=== PATIENT | male | born 1950 | race African-American/Black ===

== ENCOUNTER 2021-04-29 22:08 | Emergency (ER) | payer MEDICARE ==
[~2021-04-29] VITALS: Ht 175.3 cm; Wt 61.7 kg
--- NOTE | 2021-04-29 22:20 | NUR ---
Placed in room 04 . Placed on cardiac rn, blood pressure machine and pulse oximeter. To gown for exam. Side rails up.
[2021-04-29 22:22] VITALS: BP_SYST 160
--- NOTE | 2021-04-29 22:30 | NUR ---
PT BIB BLS S/P FALLING ASLEEP IN THE CAR WHILE DRIVING. PER PATIENT HE FELT LIKE HE "NEEDED TO PEDIATRIC OPHTHALMOLOGIST." HE ALSO REPORTS JUST BEING SLEEP DEPRIVED. NO OTHER COMPLAINTS.
[2021-04-29 22:42] LABS: BASOPHILS % (AUTO) 0.7 % (0.0-2.0); EOSINOPHILS # (AUTO) 0.3 K/uL (0.0-0.4); HEMATOCRIT 33.2 % (36-54); HEMOGLOBIN 11.1 g/dL (14.0-18.0); LYMPHOCYTES # (AUTO) 0.9 K/uL (1.0-5.5); LYMPHOCYTES % (AUTO) 23.2 % (20.5-51.5); MEAN CORPUSCULAR HEMOGLOBIN 33 pg (27-31); MEAN CORPUSCULAR HGB CONC 33 % (32-36); MEAN CORPUSCULAR VOLUME 97 fL (79.0-98.0); MONOCYTES # (AUTO) 0.4 K/uL (0.0-1.0); MONOCYTES % (AUTO) 10.4 % (1.7-9.3); NEUTROPHILS # (AUTO) 2.4 K/uL (1.8-7.7); NEUTROPHILS % (AUTO) 58.7 % (40.0-70.0); PLATELET COUNT (AUTO) 210 K/uL (130-430); RED BLOOD CELL COUNT(AUTO) 3.41 MIL/uL (4.2-6.2); RED CELL DISTRIBUTION WIDTH 13.2 % (9.0-15.0)
--- NOTE | 2021-04-29 23:00 | NUR ---
DR. SCHWARZ AT BEDSIDE
[2021-04-29 23:03] LABS: CALCIUM 8.7 mg/dL (8.4-11.0); POTASSIUM 3.7 mmol/L (3.5-5.1)
[2021-04-29 23:09] LABS: ALBUMIN 3.3 g/dL (3.4-4.8); TOTAL BILIRUBIN 0.4 mg/dL (0.0-1.0)
[2021-04-29 23:09] LABS: BILIRUBIN,URINE NEGATIVE (NEGATIVE); BLOOD, URINE NEGATIVE (NEGATIVE); CLARITY/URINE CLEAR (CLEAR); COLOR,URINE YELLOW (YELLOW); GLUCOSE,URINE NEGATIVE (NEGATIVE); KETONES,URINE NEGATIVE (NEGATIVE); LEUKOCYTE ESTERASE ,URINE NEGATIVE (NEGATIVE); NITRITE, URINE NEGATIVE (NEGATIVE); PROTEIN URINE NEGATIVE (NEGATIVE); UROBILINOGEN,URINE 0.2 (0.2-1.0)
[2021-04-29 23:49] LABS: BARBITURATE, URINE NEGATIVE (NEG <=200); BENZODIAZEPINE, URINE NEGATIVE (NEG <=150); CANNABINOID, URINE NEGATIVE (NEG <=50); COCAINE, URINE NEGATIVE (NEG <=150); METHAMPHETAMINES SCREEN,URINE NEGATIVE (NEG <=500); OPIATE, URINE NEGATIVE (NEG <=100); PHENCYCLIDINE SCREEN,URINE NEGATIVE (NEG <=25); UR TRICYCLIC ANTIDEPRESSANTS NEGATIVE (NEG <=300); URINE AMPHETAMINE NEGATIVE (NEG <=500); URINE METHADONE NEGATIVE (NEG <=200); URINE OXYCODONE SCREEN NEGATIVE (NEG <=100); URINE PROPOXYPHENE SCREEN NEGATIVE (NEG <=300)
--- NOTE | 2021-04-30 00:30 | NUR ---
Patient resting quietly. No acute distress noted. Vital signs within normal range.
[2021-04-30] MEDS ORDERED: TUBERCULIN,PURIF.PROT.DERIV. 0.1 ML SYR ID ONE (01:12)
--- NOTE | 2021-04-30 01:45 | NUR ---
Patient resting quietly. No acute distress noted. Vital signs within normal range.
[2021-04-30 02:10] VITALS: BP_SYST 158
--- NOTE | 2021-04-30 02:10 | NUR ---
Patient given written and verbal discharge instructions and verbalizes understanding. ER MD discussed with patient the results and treatment provided. Patient in stable condition. ID arm band removed. Rx of NONE given. Patient educated on pain management and to follow up with PMD. Pain Scale 0/10. Opportunity for questions provided and answered. Medication side effect fact sheet provided.
== END 2021-04-30 02:10 | disposition home or self-care (01) ==
LOC: SED 22:08
DX: R55 Syncope and collapse (principal); Z79.899 Other long term (current) drug therapy
CPT/HCPCS: 36415; 71045; 80053; 80307; 81003; 84484; 85025; 86580; 93005; 99285

== ENCOUNTER 2022-01-22 20:58 | Emergency (ER) | payer MEDICARE, SELFPAY ==
[~2022-01-22] VITALS: Ht 177.8 cm; Wt 81.6 kg
[2022-01-22 21:00] VITALS: BP_SYST 153
--- NOTE | 2022-01-22 21:35 | NUR ---
Placed in room 4 . Placed on registered nurse cardiac, blood pressure machine and pulse oximeter. To gown for exam. Side rails up. Report given to Vishal MCKEON(reg).
--- NOTE | 2022-01-22 21:46 | NUR ---
PT AOX4, BROUGHT IN BY [facility]RE DEPT WITH COMPLAINT OF BILATERAL LEG PAIN 8/10 FOR THREE DAYS. PT REPORTS BEING DISCHARGED FROM [facility] ON 01/21/2022 FOR SIMILAR COMPLAINT. PT REPORTS BEING ABLE TO AMBULATE WITH ASSISTANCE / OR WITH A WALKER BUT NOTED WITH 3+ EDEMA WITH WEEPING OF BOTH LEGS. PT NOTED TO BE UNKEPT WITH DIRTY CLOTHING AND DIRTY FEET, PT DENIES BEING HOMELESS AND STATED HE IS HAVING CHALLENGES DUE TO A POSSIBLE FORECLOSURE. UNABLE TO PROBE FURTHER BECAUSE PT FELL ASLEEP DURING QUESTIONING. PT REPORTED HISTORY OF HTN, COVID 19, AND CHF. PT DENIES CHEST PAIN OR SOB. PT PLACED ON SUPERVISOR GARMENT MANUFACTURING AND IN GOWN. PENDING MD EVALUATION, WILL MONITOR NEEDED.
[2022-01-23] LABS: BASOPHILS # (AUTO) 0.2 K/uL (0.0-0.2); BASOPHILS % (AUTO) 4.1 % (0.0-2.0); EOSINOPHILS # (AUTO) 0.2 K/uL (0.0-0.4); EOSINOPHILS % (AUTO) 3.7 % (0.0-4.0); HEMATOCRIT 31.7 % (36-54); HEMOGLOBIN 10.2 g/dL (14.0-18.0); LYMPHOCYTES # (AUTO) 0.6 K/uL (1.0-5.5); LYMPHOCYTES % (AUTO) 11.4 % (20.5-51.5); MEAN CORPUSCULAR HEMOGLOBIN 30 pg (27-31); MEAN CORPUSCULAR HGB CONC 32 % (32-36); MEAN CORPUSCULAR VOLUME 93 fL (79.0-98.0); MONOCYTES # (AUTO) 0.4 K/uL (0.0-1.0); MONOCYTES % (AUTO) 8.2 % (1.7-9.3); NEUTROPHILS # (AUTO) 3.9 K/uL (1.8-7.7); NEUTROPHILS % (AUTO) 72.6 % (40.0-70.0); PLATELET COUNT (AUTO) 230 K/uL (130-430); RED BLOOD CELL COUNT(AUTO) 3.41 MIL/uL (4.2-6.2); RED CELL DISTRIBUTION WIDTH 15.4 % (9.0-15.0); WHITE BLOOD COUNT (AUTO) 5.4 K/uL (4.8-10.8)
[2022-01-23 00:20] LABS: ALANINE AMINOTRANSFERASE 23 U/L (12-78); ALBUMIN 3.1 g/dL (3.4-4.8); ASPARTATE AMINOTRANSFERASE 20 U/L (10-37); CALCIUM 8.9 mg/dL (8.4-11.0); CREATININE 0.72 mg/dL (0.55-1.30); GLUCOSE 85 mg/dL (70-99); TOTAL BILIRUBIN 0.3 mg/dL (0.0-1.0); UREA NITROGEN, BLOOD 24 mg/dL (8-21)
--- NOTE | 2022-01-23 00:20 | NUR ---
ER at bedside examining patient.
[2022-01-23 00:23] LABS: SODIUM SERUM 142 mmol/L (136-145)
[2022-01-23 00:24] LABS: ANION GAP 7 (5-15); CHLORIDE 105 mmol/L (98-107)
--- NOTE | 2022-01-23 00:24 | NUR ---
PT ADMITTED TO CONSUMING ALOT OF ALCOHOL TODAY
[2022-01-23 01:12] LABS: BILIRUBIN,URINE NEGATIVE (NEGATIVE); BLOOD, URINE NEGATIVE (NEGATIVE); CLARITY/URINE CLEAR (CLEAR); COLOR,URINE YELLOW (YELLOW); GLUCOSE,URINE NEGATIVE (NEGATIVE); KETONES,URINE NEGATIVE (NEGATIVE); LEUKOCYTE ESTERASE ,URINE NEGATIVE (NEGATIVE); NITRITE, URINE POSITIVE (NEGATIVE); PROTEIN URINE NEGATIVE (NEGATIVE); UROBILINOGEN,URINE 0.2 (0.2-1.0)
[2022-01-23 01:33] LABS: BARBITURATE, URINE NEGATIVE (NEG <=200); BENZODIAZEPINE, URINE NEGATIVE (NEG <=150); CANNABINOID, URINE NEGATIVE (NEG <=50); COCAINE, URINE NEGATIVE (NEG <=150); METHAMPHETAMINES SCREEN,URINE NEGATIVE (NEG <=500); OPIATE, URINE NEGATIVE (NEG <=100); PHENCYCLIDINE SCREEN,URINE NEGATIVE (NEG <=25); UR TRICYCLIC ANTIDEPRESSANTS NEGATIVE (NEG <=300); URINE AMPHETAMINE NEGATIVE (NEG <=500); URINE METHADONE NEGATIVE (NEG <=200); URINE OXYCODONE SCREEN NEGATIVE (NEG <=100); URINE PROPOXYPHENE SCREEN NEGATIVE (NEG <=300)
--- NOTE | 2022-01-23 02:23 | NUR ---
PT IN BED RESTING EASILY AROUSABLE TO VERBAL STIMULI. PT PENDING DISPOSITON. WILL MONITOR NEEDED.
[2022-01-23 03:20] LABS: BACTERIA,URINE MANY /HPF (None Seen); RBC,URINE 0-3 /HPF (0-3)
[2022-01-23 04:33] LABS: PROTHROMBIN TIME 10.6 SECS (9.5-12.5)
--- NOTE | 2022-01-23 04:52 | NUR ---
PT NOTED TO BE SOILED WITH URINE, PT CLEANED AND BEDDING CHANGED WITH CLEAN SHEETS. PT PROVIDED WITH EXTRA CLOTHING SUPPLIED BY THE SD SECURITY TEAM FOR COMFORT. PT ENCOURAGED TO CHANGE CLOTHING SO HE IS WARM. PENDING DISCHARGE AT THIS TIME. AT THE BEDSIDE
--- NOTE | 2022-01-23 06:46 | NUR ---
PT IN BED RESTING WITH HIS EYES OPEN, STABLE CONDITION. PENDING TRANSFER TO [facility] LOCATION WITH TAXI EVLUATION
[2022-01-23 07:08] LABS: ALCOHOL, BLOOD < 3 mg/dL (<10)
--- NOTE | 2022-01-23 07:13 | NUR ---
REPORT PROVIDED TO LINDA TORRE. ALL QUESTIONS ANSWERED
--- NOTE | 2022-01-23 07:15 | NUR ---
REPORT RCVD FROM OUTGOING NOC RN, ALL CARES ASSUMED. PATIENT IN NAD, ASLEEP ON GURNEY, DISCHARGE REMAINS PENDING. PATIENT UNABLE TO GIVE ADDRESS TO HOME, HAS ASKED TO BE DROPPED OFF AT A [employer].
--- NOTE | 2022-01-23 08:04 | NUR ---
CONTACTED SERVICE TECH IN PERSON, CM STATED SHE WILL NOTIFY TAPER AND FLOATER TO COME AND SEE PATIENT TO DISCUSS DISCHARGE PLAN.
--- NOTE | 2022-01-23 08:18 | NUR ---
PATIENT REMAINS STABLE, FLUIDS AND BREAKFAST TRAY OFFERED.
--- NOTE | 2022-01-23 08:30 | NUR ---
RIBBON WEAVER AT BEDSIDE.
--- NOTE | 2022-01-23 09:00 | NUR ---
Financial Operations Analyst Per request of Director of Case Management SAHIL Jordan Toshia responded to referral for possible transportation assistance to patient in Room 4. MGMT SPECIALIST met with patient at bedside. MGMT SPECIALIST completed introductions and reason for contact and patient stated he was open to talking. Mental health history- Patient denies any past mental health diagnosis. Mental Status- Patient was unable to state how he arrived at this hospital. Patient was unable to answer MGMT SPECIALIST's questions regarding his home, medical information, and location of where he'd like to be transported to. Thought process- Incoherent, Flight of ideas, loose associations Current Concerns- According to patient's cousin Jenn over the last year he became and "just lost it". She stated her last contact with patient was in the last year at which time he was supposed to be returning to his home in [place] from his relatives home in [place]. Both the patient and his emergency contact Jenn were not able to provide a direct answer related to the patients current residence. MGMT SPECIALIST provided patient with phone to talk with Jenn. According to Jenn she stated hes not ok, he has lost touch and needs help. We dont want him to be a Jacob Orlando. She also shared being previously contacted by law enforcement during a previous ED stay (hospital unknown). Social Support- Jenn Arteaga . MGMT SPECIALIST spoke with Jenn who shared "to my knowledge he has a house". He also has a son, Wiley Vieyra , niece October . MGMT SPECIALIST met with patient's RN Lia and requested a psych consult due to the patient being disorientated. MGMT SPECIALIST made attempt to contact patients son, voicemail was left.
--- NOTE | 2022-01-23 09:15 | NUR ---
Tarp Repairer GRINDING MACHINE OPERATOR PORTABLERodney Pope spoke to ED Dr. Castellanos regarding psych consult. According to Dr. Castellanos he will be transferring patient to [facility]
--- NOTE | 2022-01-23 09:55 | NUR ---
ORDER PLACED FOR HEAD CT, RADIOLOGY AWARE.
--- NOTE | 2022-01-23 10:05 | NUR ---
PANKAJ RODRIGUEZ MD HAS REQUESTED PATIENT BE TRANSFERED TO [facility] FOR [facility]. BUSINESS ANALYTICS SPECIALIST AWARE.
--- NOTE | 2022-01-23 10:11 | NUR ---
PATIENT BROUGHT TO CT FOR EXAM VIA W/C
[2022-01-23] MEDS ORDERED: cefTRIAXone 1 GM in LIDOCAINE 1%, 20 ML MDV 2.1 ML IM ONE (10:30)
--- NOTE | 2022-01-23 10:30 | NUR ---
PATIENT RETURNED FROM CT
--- NOTE | 2022-01-23 10:58 | NUR ---
(ELYSSA) PLACED INTO ROOM FOR CONSULT BY NGOZI
--- NOTE | 2022-01-23 11:19 | NUR ---
ALBERTO REY COMPLETED, MD ON PHONE DISCUSSING PLAN OF CARE.
--- NOTE | 2022-01-23 11:41 | NUR ---
Tree Tapping Laborer PATIENT FINANCIAL COUNSELOR Toshia attempted contact with patient's son Wiley Vieyra , voicemail was left
--- NOTE | 2022-01-23 11:57 | NUR ---
ON PHONE DISCUSSING PLAN OF CARE WITH PSYCHATRIST
--- NOTE | 2022-01-23 12:56 | NUR ---
[facility] [phone], CALLED REPORT TO ED CHARGE NURSE LINDA QUICK.
[2022-01-23] MEDS ORDERED: GADOBENATE DIMEGLUMINE 529 MG/ML, 5 ML VIAL IV ONE (13:25)
--- NOTE | 2022-01-23 13:51 | NUR ---
Patient to be transferred to [facility]. Is being transferred due to higher level of care. Receiving facility has accepting physician and available space. ER physician has signed transfer form. Patient or responsible alliance party has agreed to transfer and signed form. Patient belongings inventoried and will be sent with patient. Copy of nursing notes, lab reports, EKG, Physicians Orders and X-rays to be sent with patient. Report called to JUVENTINO at receiving facility. Receiving physician is MELYSSA. [facility] service has been called for transfer. [id number]
[2022-01-23 13:52] VITALS: BP_SYST 151
--- NOTE | 2022-01-23 13:54 | NUR ---
Farmworker Grain ACOUSTICAL TILE CARPENTERS SUPERVISOR Toshia received a call from patient's Leann Langley (legally ) stating she was calling in regards to the message left for her son Wiley by this ACOUSTICAL TILE CARPENTERS SUPERVISOR. According to Leann the patient has been "gong from hospital to hospital for months". She shared they have considered conservatorship but are unsure how to proceed. She also shared the family has provided the patient with hotel rooms and an apartment, but he leaves. They had lost contact with him over the last few months after the patient left a hotel room and stated he was going to move out of state. ACOUSTICAL TILE CARPENTERS SUPERVISOR requested permission to provide her name as a point of contact, but she stated to only include patient's son Wiley. ACOUSTICAL TILE CARPENTERS SUPERVISOR also provided her with supportive resources.
== END 2022-01-23 13:52 | disposition short-term general hospital (02) ==
LOC: SED 20:58
DX: M79.605 Pain in left leg (principal); M79.604 Pain in right leg; R41.82 Altered mental status, unspecified; Z20.822 Contact with and (suspected) exposure to COVID-19
CPT/HCPCS: 36415; 70450; 71045; 76376; 80053; 80307; 81000; 83605; 83880; 84484; 85025; 85610; 85730; 87040; 87086; 87426; 93005; 96372; 99285; A9577; G0482; J0696; J2001

== ENCOUNTER 2022-03-04 22:24 | Emergency (ER) | payer MEDICARE ==
[~2022-03-04] VITALS: Ht 172.7 cm; Wt 77.1 kg
[2022-03-04 23:14] VITALS: BP_SYST 156
[2022-03-04] MEDS ORDERED: KETOROLAC TROMETHAMINE 30 MG VIAL IVP ONE (23:45)
[2022-03-04] MEDS ORDERED: PROCHLORPERAZINE EDISYLATE 10 MG/2 ML VIAL IVP ONE (23:45)
[2022-03-05] MEDS ORDERED: KETOROLAC TROMETHAMINE 30 MG VIAL ONE (00:03)
[2022-03-05 00:24] LABS: BASOPHILS % (AUTO) 0.6 % (0.0-2.0); EOSINOPHILS # (AUTO) 0.4 K/uL (0.0-0.4); EOSINOPHILS % (AUTO) 8.8 % (0.0-4.0); HEMATOCRIT 32.1 % (36-54); HEMOGLOBIN 10.6 g/dL (14.0-18.0); LYMPHOCYTES # (AUTO) 0.6 K/uL (1.0-5.5); LYMPHOCYTES % (AUTO) 13.7 % (20.5-51.5); MEAN CORPUSCULAR HEMOGLOBIN 31 pg (27-31); MEAN CORPUSCULAR HGB CONC 33 % (32-36); MEAN CORPUSCULAR VOLUME 92 fL (79.0-98.0); MONOCYTES # (AUTO) 0.3 K/uL (0.0-1.0); MONOCYTES % (AUTO) 8.1 % (1.7-9.3); NEUTROPHILS # (AUTO) 2.9 K/uL (1.8-7.7); NEUTROPHILS % (AUTO) 68.8 % (40.0-70.0); PLATELET COUNT (AUTO) 200 K/uL (130-430); RED BLOOD CELL COUNT(AUTO) 3.48 MIL/uL (4.2-6.2); RED CELL DISTRIBUTION WIDTH 14.1 % (9.0-15.0); WHITE BLOOD COUNT (AUTO) 4.2 K/uL (4.8-10.8)
[2022-03-05 00:53] LABS: ANION GAP 4 (5-15); CALCIUM 8.2 mg/dL (8.4-11.0); CHLORIDE 107 mmol/L (98-107); CREATININE 1.05 mg/dL (0.55-1.30); GLUCOSE 158 mg/dL (70-99); POTASSIUM 3.6 mmol/L (3.5-5.1); SODIUM SERUM 141 mmol/L (136-145); UREA NITROGEN, BLOOD 12 mg/dL (8-21)
[2022-03-05 01:07] LABS: ALANINE AMINOTRANSFERASE 26 U/L (12-78); ASPARTATE AMINOTRANSFERASE 25 U/L (10-37); THYROID STIMULATING HORMONE 0.97 uIu/mL (0.36-3.74); TOTAL BILIRUBIN 0.2 mg/dL (0.0-1.0)
[2022-03-05 01:27] LABS: ALCOHOL, BLOOD < 3 mg/dL (<10)
[2022-03-05] MEDS ORDERED: BUMEX 1 MG/4 ML VIAL IVP ONE (05:15)
[2022-03-05] MEDS ORDERED: ALBUMIN HUMAN 25% 50 ML IV ONE (05:15)
[2022-03-05] MEDS ORDERED: FURO-150 PO (06:28)
[2022-03-05] MEDS ORDERED: POTA-197 PO (06:30)
[2022-03-05] MEDS ORDERED: OLANZapine 5 MG TABLET PO ONE (06:30)
[2022-03-05] MEDS ORDERED: PIPERACILLIN/TAZOBACTAM 2.25 GM VIAL IV ONE (07:07)
--- NOTE | 2022-03-05 07:12 | NUR ---
Patient to be transferred to [facility]. Is being transferred due to higher level of care. Receiving facility has accepting physician and available space. ER physician has signed transfer form. Patient belongings inventoried and will be sent with patient. Copy of nursing notes, lab reports, EKG, Physicians Orders and X-rays to be sent with patient. Report called to [phone] at receiving facility. Receiving physician is DR EVANS. [facility] ambulance service has been called for transfer. ETA is [phone]. PT AT THIS TIME STATING THAT HE DOES NOT WANT TO GO TO [facility], PT IS TO GO TO ROOM 444 AT [facility], ATTEMPTING TO TALK WITH PT ABOUT GOING TO [facility]
--- NOTE | 2022-03-05 07:23 | NUR ---
PATIENTWAS LETHARGIC WHEN BROUGHT IN AND SLEPT THROUGH THE NIGHT. HE REFUSED ELKINS INSERTION AND REFUSED TREATMENTYS. DOCTOR DISCHARGED HIM AND DISCHARGE PAPER WORK SIGNED BY PATIENT ANG PAPERS GIVEN TO HIM. PATIENT STILL HERE .NO CHANGE IN PATIENT'S CONDITION.
--- NOTE | 2022-03-05 07:59 | NUR ---
Stable Minimal pain Has agreed to go to [facility] Consent obtained Awaiting transpo
[2022-03-05 09:03] VITALS: BP_SYST 156
--- NOTE | 2022-03-05 09:07 | NUR ---
Patient in agreement Stable VSS Afebrile Minimal pain Has been accepted at [facility] Report given to Toribio at [facility] Also report to EMS transport. Patient in agreement with plan Ambulated to exit
--- NOTE | 2022-03-06 09:25 | NUR ---
Water Maintenance Supervisor SAHIL Toshia responded to a generated mental health social worker request for "patient is homeless". Patient has been transferred to [facility] Due to patient being a prior patient, ACID PAINTER contacted [facility], spoke to SAHIL Roger [email or web address] to provide her with previously obtained contacts for patient. ACID PAINTER will continue to be available as needed.
== END 2022-03-05 09:07 | disposition short-term general hospital (02) ==
LOC: SED 22:24
DX: R51.9 Headache, unspecified (principal); R60.0 Localized edema; E88.09 Other disorders of plasma-protein metabolism, not elsewhere classified; F29 Unspecified psychosis not due to a substance or known physiological condition; Z59.00 Homelessness unspecified; Z20.822 Contact with and (suspected) exposure to COVID-19; Z79.899 Other long term (current) drug therapy
CPT/HCPCS: 36415; 70450; 71045; 76376; 80053; 84443; 85025; 87426; 93005; 93970; 96365; 96375; 99285; G0482; J0780; J1885; J2543; J3490; P9046